=== PATIENT | female | born 1990 | race Hispanic/Latino ===

== ENCOUNTER 2017-06-06 10:29 | Emergency (ER) | payer OTHER ==
[2017-06-06] MEDS ORDERED: Acetaminophen 500 MG TAB ONE (13:15)
--- NOTE | 2017-06-06 14:35 | RAD ---
3 VIEWS RIGHT FOOT: Date: 06/06/17 COMPARISON: None. HISTORY: Dropped a wooden decoration on the right foot, injury with pain. FINDINGS: There is a nondisplaced, obliquely oriented fracture involving the medial base of the first distal ph alanx with extension into the first interphalangeal joint. There is no dislocation. No additional fra cture is seen. IMPRESSION: Obliquely oriented, intraarticular fracture at the medial base of the first distal phalanx. POS: [facility]
== END 2017-06-06 14:27 | disposition home or self-care (01) ==
LOC: ERS 10:29
DX: O9A.212 Injury, poisoning and certain other consequences of external causes complicating pregnancy, second trimester (principal); S92.531A Displaced fracture of distal phalanx of right lesser toe(s), initial encounter for closed fracture; Z3A.27 27 weeks gestation of pregnancy; W20.8XXA Other cause of strike by thrown, projected or falling object, initial encounter

== ENCOUNTER 2017-08-27 01:21 | Inpatient (IN) | payer OTHER ==
[2017-08-27 01:51] VITALS: BMI 35.7
[2017-08-27] MEDS: Lactated Ringer's 1,000 ML IV SCH ×4 (02:12→15:46)
[2017-08-27] MEDS ORDERED: Lidocaine 1% (PF) 30 ML VIAL SC PRN (02:33)
[2017-08-27] MEDS ORDERED: Ondansetron HCl/PF 4 MG/2 ML Vial IVP PRN (02:33)
[2017-08-27] MEDS ORDERED: Acetaminophen 500 MG TAB PO PRN ×2 (02:33→20:19)
[2017-08-27] MEDS ORDERED: Docusate 100 MG CAP PO PRN (02:33)
[2017-08-27] MEDS ORDERED: Promethazine HCl 25 MG/ML VIAL IM PRN (02:33)
[2017-08-27] MEDS ORDERED: Ibuprofen 800 MG TAB PO PRN (02:40)
--- NOTE | 2017-08-27 02:47 | PDOC.LDHP ---
Labor and Delivery H&P Chief complaint: contractions HPI: 26 yo @ 39.1 by lmp and 2nd tri US presents for painful contractions since 11pm last night. Pt reports contractions have progressively become stronger and more frequent. She also reports some mild blood and mucus discharge over same time period. Reports good movement. Denies cp, sob, nvdc, headache, changes in vision, epigastric/ruq abdominal pain. Current gestational age (weeks): 39 (+1) Dating criteria: last menstrual period, second trimester ultrasound Grav: 2 Para: 1 Current complications: none Abnormal US findings: No Current medications: pre- vitamins Previous surgical history: none Social history: none - Physical Exam Vital signs reviewed and normal: yes General: NAD, breathing through contractions Heart: RRR Lungs: nonlabored breathing Abdomen: gravid Extremeties: trace edema FHT: category 1, variability present - Vaginal Exam cm dilated: 5 Effacement: 90% Station: -1 - OB Labs Blood type: B RH: positive Antibody Screen: negative HIV: negative RPR: negative HEPSAg: negative 1 hour GCT: negative GBS: negative Urine drug screen: negative Rubella: non-immune - Assessment L&D Assessment: term patient in labor - Plan Plan: admit to L&D -: 1) TIUP in labor: -admit to l&d, LR @125mls/hr, cervical checks q2hr, hemagram, rpr, hepbsag. Stadol for pain. Pt does not desire epidural at the moment; however, anesthesia consult is pending if pt changes her mind. -pt rafia q5min, fht 140s baseline, cat1 strip, mod variability, w/o late or variable decels -adequate fluid, anterior/fundal placenta, cephalic presentation. Last cervical check 5,90, -1, recheck in 2 hours -npo with ice chips 2) Rubella non-immune: MMR PP <Joon Leavitt - Last Filed: 08/27/17 03:03> <Julee Robertson - Last Filed: 08/27/17 03:34> Allergies/Adverse Reactions: Allergies Allergy/AdvReac Type Severity Reaction Status Date / Time No Known Drug Allergies Allergy Verified 08/27/17 01:42 Attending Addendum - Attending Addendum Date/Time: 08/27/17 0331 I personally evaluated the patient and discussed the management with Dr. Leavitt I agree with the History, Examination, Assessment and Plan documented above with any addition or exceptions noted below- 26 yo @ 39.2 weeks presented c/o ctx. Denies LOF, VB. (+)FM. Afebrile VSS SVE /-1 per nurse; Category 1 FHTs. [place]- ctx q4-5 minutes labs WNL including GBS negative. A/P: IUP @39.2 weeks in labor- admit to L&D. Epidural when desired. Continue expectant management. <Julee Robertson - Last Filed: 08/27/17 03:34>
[2017-08-27] MEDS ORDERED: Butorphanol Tartrate 1 MG/ML VIAL SLOW IVP PRN (03:02)
[2017-08-27 03:05] LABS: Hemoglobin 11.1 g/dL (12.0-16.0); Mean Corpuscular HGB CONC 33.4 g/dL (32.0-36.0); Mean Corpuscular Hemoglobin 25.5 pg (27.0-31.0); Mean Corpuscular Volume 76.3 fl (81.0-99.0); Mean Platelet Volume 10.2 fL (7.4-10.4); Platelet Count 155 thou/uL (130-400); RBC Distribution Width 14.8 % (11.5-14.5); Red Blood Cell (RBC) Count 4.34 mill/uL (4.20-5.40); White Blood Cell (WBC) Count 11.3 thou/uL (4.8-10.8)
--- NOTE | 2017-08-27 04:11 | PDOC.LDPN ---
Labor & Delivery Progress Note - Subjective Subjective: painful contractions - Objective Vital signs reviewed and normal: yes General: breathing through contractions SVE: 6/C/-1 FHT: category 1, early decelerations [place] contractions every: q4-5 minutes -: A/P: IUP @ 39.2 in active labor -Reassuring FHTs; Category 1 -Continue expectant management
[2017-08-27 05:06] LABS: Syphilis Antibody Nonreactive (Nonreactive); Syphilis Antibody Index 0.08 S/CO (<1.00 Non-Reactive)
[2017-08-27 05:38] LABS: Hep B Surf Ag NonReactive S/CO (NonReactive)
[2017-08-27 05:39] LABS: HBSAg Index 0.25 S/CO (0-0.99)
--- NOTE | 2017-08-27 07:25 | PDOC.LDPN ---
Labor & Delivery Progress Note - Subjective Subjective: comfortable, painful contractions - Objective Vital signs reviewed and normal: yes General: NAD, resting, breathing through contractions Uterine fundus: palpable contractions SVE: @ 0545 by nurse Dilation: 6 Effacement: 100% Station: -1 FHT: category 2, variable decelerations (few), variability present [place] contractions every: 2-7 minutes - Assessment (1) Term Code(s): Z34.80 - ENCOUNTER FOR SUPRVSN OF NORMAL , UNSP TRIMESTER Current Visit: Yes Status: Acute Comment: 26 y/o @ 39.1 WGA presented in spontaneous labor Last cervical check at 0545 was 6/100/-1 -Stadol prn pain, epidural if patient changes her mind for pain management -Cervical checks q2h, next at 0745 -LR @ 125 -Continue routine care Plan: continue plan of care <Lore Benítez - Last Filed: 08/27/17 07:23> Attending Addendum - Attending Addendum Date/Time: 08/27/17 0959 Discussed in detail with Dr. Benítez. I agree with the History, Examination, Assessment and Plan documented above with any addition or exceptions noted below. <Karan Alvarado - Last Filed: 08/27/17 09:59>
--- NOTE | 2017-08-27 08:24 | PDOC.LDPN ---
Labor & Delivery Progress Note - Subjective Subjective: painful contractions - Objective Vital signs reviewed and normal: yes General: breathing through contractions Uterine fundus: palpable contractions SVE: @ [address] Benítez Dilation: 7 Effacement: 100% Station: -1 FHT: category 1, variability present [place] contractions every: 3-5 min AROM: clear fluid - Assessment (1) Term Code(s): Z34.80 - ENCOUNTER FOR SUPRVSN OF NORMAL , UNSP TRIMESTER Current Visit: Yes Status: Acute Comment: 26 y/o @ 39.1 WGA presented in spontaneous labor Last cervical check at 0545 was 7100/-1 AROM with clear fluid -Stadol prn pain, epidural if patient changes her mind for pain management -Cervical checks q2h -LR @ 125 -Continue routine care Plan: continue plan of care <Lore Benítez - Last Filed: 08/27/17 08:22> Attending Addendum - Attending Addendum Date/Time: 08/27/17 1002 Discussed in detail with Dr. Benítez. I agree with the History, Examination, Assessment and Plan documented above with any addition or exceptions noted below. <Karan Alvarado - Last Filed: 08/27/17 10:02>
[2017-08-27] MEDS ORDERED: Bupivacaine 0.5% 20 ML, fentaNYL Citrate/PF 400 MCG in Sodium Chloride 0.9% 72 ML EPIDURAL SCH ×2 (10:30→11:15)
[2017-08-27] MEDS ORDERED: DISCONTINUE ALL PREVIOUS NARCOTICS FS SCH (10:30)
[2017-08-27] MEDS ORDERED: Lactated Ringer's 500 ML IV PRN (10:45)
[2017-08-27] MEDS ORDERED: Naloxone HCl 0.4 mg/ml Vial IVP PRN ×2 (10:45)
[2017-08-27] MEDS ORDERED: Fentanyl 4mcg/Marcaine 0.1% Cassette 100 ML EPIDURAL SCH (10:45)
[2017-08-27] MEDS ORDERED: ePHEDrine/0.9% NaCl/PF SYRINGE 50 mg/10 ml SLOW IVP PRN (10:45)
[2017-08-27] MEDS ORDERED: Eucerin (Mineral Oil/Petrolatum,White) 30 gm Jar TOP PRN (10:45)
[2017-08-27] MEDS ORDERED: diphenhydrAMINE 50 MG/ML VIAL IVP PRN (10:45)
[2017-08-27] MEDS ORDERED: Communication Order-Pharmacy FS SCH (10:45)
--- NOTE | 2017-08-27 11:36 | PDOC.LDPN ---
Labor & Delivery Progress Note - Subjective Subjective: painful contractions - Objective Vital signs reviewed and normal: yes General: breathing through contractions Uterine fundus: palpable contractions SVE: @ 1051 by nurse Wills Dilation: 8 Effacement: 90% Station: 0 FHT: category 1, variability present IUPC placed: yes (by Nurse Wills) - Assessment (1) Term Code(s): Z34.80 - ENCOUNTER FOR SUPRVSN OF NORMAL , UNSP TRIMESTER Current Visit: Yes Status: Acute Comment: 26 y/o @ 39.1 WGA presented in spontaneous labor Last cervical check at 0545 was / to -1 IUPC placed about 30 minutes ago by nurse, and ctx have not been adequate. She is having about 50-100 MVU -Epidural in place -Will start pitocin for augmentation -Cervical checks q2h -LR @ 125 -Continue routine care Plan: continue plan of care, pitocin for augmentation <Lore Benítez - Last Filed: 08/27/17 11:34> Attending Addendum - Attending Addendum Date/Time: 08/27/17 1503 Discussed in detail with resident. I agree with the History, Examination, Assessment and Plan documented above with any addition or exceptions noted below. <Karan Alvarado - Last Filed: 08/27/17 15:03>
[2017-08-27] MEDS ORDERED: NS w/ Oxytocin 10 units 500 ML ONE (11:44)
--- NOTE | 2017-08-27 13:13 | PDOC.LDPN ---
Labor & Delivery Progress Note - Subjective Subjective: comfortable - Objective Vital signs reviewed and normal: yes General: NAD Uterine fundus: non tender Dilation: 9 Effacement: 100% Station: -1 FHT: category 1, early decelerations, variability present [place] contractions every: 2-3 min. inadequate IUPC placed: yes FSE placed: yes - Assessment (1) Term Code(s): Z34.80 - ENCOUNTER FOR SUPRVSN OF NORMAL , UNSP TRIMESTER Current Visit: Yes Status: Acute Comment: 26 y/o @ 39.1 WGA presented in spontaneous labor /-1, averaging 150 MVU/10 min. still inadequate. titrate pit. -Epidural in place -Cervical checks q2h -LR @ 125 <Maxime Rodriguez - Last Filed: 08/27/17 13:12> Attending Addendum - Attending Addendum Date/Time: 08/27/17 4077 I discussed the management with Dr. Benítez and Jennifer. I agree with the History, Examination, Assessment and Plan documented above with any addition or exceptions noted below. <Karan Alvarado - Last Filed: 08/27/17 15:04>
--- NOTE | 2017-08-27 15:07 | PDOC.LDPN ---
Labor & Delivery Progress Note - Objective Vital signs reviewed and normal: yes General: NAD, resting Uterine fundus: non tender Dilation: AL/c/0 per RN FHT: category 1 (+accelerations), variability present [place] contractions every: q2-3m, pit @ 20, MVU ~160 AROM: clear fluid Plan: continue plan of care (Continue pitocin, may need to continue increasing, on bedside sono baby LOT, trending to LOP. Recheck in 1-2 hours.)
[2017-08-27] MEDS ORDERED: SODIUM CHLORIDE 0.9% IVPB SCH ×2 (18:10→18:45)
[2017-08-27] MEDS ORDERED: GENTAMICIN SULFATE IVPB SCH ×2 (18:10→18:45)
[2017-08-27] MEDS: Ampicillin 2 GM in Sodium Chloride 0.9% 100 ML IVPB SCH (18:42)
[2017-08-27] MEDS: NS / Oxytocin 40 units/1000ml 1,000 ML IV PRN ×2 (19:33→20:45)
[2017-08-27] MEDS ORDERED: Carboprost 250 MCG/ML AMP ONE (19:42)
[2017-08-27] MEDS ORDERED: Misoprostol 200 MCG TAB ONE (19:42)
[2017-08-27] MEDS ORDERED: Methylergonovine 0.2 MG/ML VIAL ONE (19:42)
--- NOTE | 2017-08-27 21:25 | PDOC.OPDEL ---
OB Operative/Delivery Note Delivery Dr/Surgeon: Yvon Leavitt DO/Maxime Rodriguez MD Assist: Attending- Julee Robertson MD Pre-Delivery Diagnosis: active labor Procedure/Post Delivery Dx: spontaneous vaginal delivery Weeks gestation: 40 Anesthesia: epidural - Additional Findings/Plan Placenta delivered: spontaneous Repaired Obstetrical Laceration: none Estimated blood loss: 300 mL Compilations/Other Findings: I was present and supervised the of a viable male over an intact perineum. Apgars 9/9. Nuchal cord x1. Infant delivered through cord without difficulty. Placenta delivered spontaneously and intact. 3 V cord. No epis; no lacerations. EBL 300 mL. Residents: [place]. Mother developed fevber about 1 hour prior to delivery with associated and maternal tachycardia. Started on Ampicillin and Gentamicin for chorioamnionitis; will continue until she is 24-48 hours afebrile. CBC, lactate and blood cultures also drawn post delivery. Placenta sent for pathology. Post delivery plan: routine recovery
[2017-08-27 22:23] LABS: Mean Corpuscular HGB CONC 32.6 g/dL (32.0-36.0); Mean Corpuscular Hemoglobin 24.9 pg (27.0-31.0); Mean Corpuscular Volume 76.5 fl (81.0-99.0); Mean Platelet Volume 7.1 fL (7.4-10.4); Platelet Count 184 thou/uL (130-400); RBC Distribution Width 14.8 % (11.5-14.5); Red Blood Cell (RBC) Count 4.02 mill/uL (4.20-5.40); White Blood Cell (WBC) Count 17.9 thou/uL (4.8-10.8)
[2017-08-27 22:55] LABS: Band 12 % (5-11); Lymphocytes 4 % (21-51); MDiff Complete? YES; Monocytes 4 % (0-10); Neutrophil 80 % (42-75); PLT Morphology Comment Appears Adequate; RBC Morphology Normal
[2017-08-27] MEDS ORDERED: diphenhydrAMINE 25 MG CAP PO PRN (23:14)
[2017-08-27] MEDS ORDERED: Misoprostol 200 MCG TAB VAG PRN (23:14)
[2017-08-27] MEDS ORDERED: Benzocaine/Menthol 20-0.5% 60 ML CAN TOP PRN (23:14)
[2017-08-27] MEDS ORDERED: Preparation H Ointment 28 GM TUBE PR PRN (23:14)
[2017-08-27] MEDS ORDERED: NS / Oxytocin 40 units/1000ml 1,000 ML IV SCH (23:14)
[2017-08-27] MEDS ORDERED: Ibuprofen 800 MG TAB PO SCH (23:14)
[2017-08-27] MEDS ORDERED: Milk Of Magnesia 30 ML UDCUP PO PRN (23:14)
[2017-08-27] MEDS ORDERED: Bisacodyl 10 MG SUPP PR PRN (23:14)
[2017-08-27] MEDS ORDERED: Methylergonovine 0.2 MG/ML VIAL IM PRN (23:14)
[2017-08-27] MEDS ORDERED: Docusate Calcium (SURFAK) 240 MG CAP PO SCH ×2 (23:14→23:45)
[2017-08-27] MEDS ORDERED: Lanolin Ointment 7 GM TUBE TOP PRN (23:14)
[2017-08-28] MEDS: Ibuprofen 800 MG TAB PO SCH ×4 (00:03→23:57)
[2017-08-28] MEDS: Ampicillin 2 GM in Sodium Chloride 0.9% 100 ML IVPB SCH ×3 (00:56→13:05)
[2017-08-28] MEDS: Gentamicin Sulfate 100 MG in Premix Bag 1 BAG IVPB SCH ×2 (03:02→11:24)
[2017-08-28] MEDS: Lactated Ringer's 1,000 ML IV SCH ×2 (04:45→19:52)
[2017-08-28 06:26] LABS: #Eosinphils 0.2 thou/uL (0.0-0.7); #Lymphocytes 2.3 thou/uL (1.20-3.40); #Monocytes 1.2 thou/uL (0.11-0.59); #Neutrophils 12.9 thou/uL (1.40-6.50); %Basophils 0.3 % (0.0-1.0); %Eosinophils 1.4 % (0.0-10.0); %Lymphocytes 13.9 % (21.0-51.0); %Monocytes 7.1 % (0.0-10.0); %Neutrophils 77.4 % (42.0-75.0); Hemoglobin 9.3 g/dL (12.0-16.0); Mean Corpuscular HGB CONC 32.2 g/dL (32.0-36.0); Mean Corpuscular Volume 77.6 fl (81.0-99.0); Mean Platelet Volume 9.9 fL (7.4-10.4); Platelet Count 123 thou/uL (130-400); RBC Distribution Width 14.8 % (11.5-14.5); Red Blood Cell (RBC) Count 3.71 mill/uL (4.20-5.40); White Blood Cell (WBC) Count 16.7 thou/uL (4.8-10.8)
--- NOTE | 2017-08-28 06:55 | PDOC.PP ---
Post Progress Note Post Day #: 1 Subjective: pain controlled. feeling better but tired. Attempting to breast feed. states that is going well. PO intake tolerated: yes Flatus: yes Ambulation: yes Vital Signs (12 hours) Temp Pulse Resp BP 08/28/17 04:00 98.1 F 89 18 95/54 L 08/28/17 00:30 98.5 F 92 18 96/52 L 08/27/17 23:30 98.4 F 100 18 97/51 L 08/27/17 22:30 99.0 F 100 18 94/53 L Weight Weight 91.626 kg - Physical Examination General: NAD Cardiovascular: no m/r/g, RRR Respiratory: clear to auscultation bilaterally, non-labored breathing Abdominal: + bowel sounds, lochia, no distention, appropriately TTP Extremities: negative homans (B) Neurological: no gross focal deficits Psychiatric: A&Ox3, normal affect Result Diagrams: 08/28/17 06:10 Additional Labs: Post Labs Blood Type B POSITIVE 08/27/17 02:14 Hep Bs Antigen NonReactive S/CO (NonReactive) 08/27/17 02:14 (1) Term Code(s): Z34.80 - ENCOUNTER FOR SUPRVSN OF NORMAL , UNSP TRIMESTER Status: Acute Comment: 26 y/o @ 39.1 WGA presented in spontaneous labor now delivered - routine care - give MMR vaccine since rubella non-immune - expectant managment. - baby will require 48 hr observation, will discuss keeping vs. B&B tomorrow. (2) Chorioamnionitis, delivered, current hospitalization Code(s): O41.1290 - CHORIOAMNIONITIS, UNSP TRIMESTER, NOT APPLICABLE OR UNSP Status: Acute Comment: VSS. white count trending down. - continue abx until afebrile 24 hours - cultures pending. <Maxime Rodriguez - Last Filed: 08/28/17 08:52> Vital Signs (12 hours) Temp Pulse Resp BP 08/28/17 09:00 98.6 F 86 16 101/56 L 08/28/17 04:00 98.1 F 89 18 95/54 L 08/28/17 00:30 98.5 F 92 18 96/52 L 08/27/17 23:30 98.4 F 100 18 97/51 L 08/27/17 22:30 99.0 F 100 18 94/53 L Weight Weight 91.626 kg Result Diagrams: 08/28/17 06:10 Additional Labs: Post Labs Blood Type B POSITIVE 08/27/17 02:14 Hep Bs Antigen NonReactive S/CO (NonReactive) 08/27/17 02:14 <Karan Alvarado - Last Filed: 08/28/17 09:48> Attending Addendum - Attending Addendum Date/Time: 08/28/1747 I personally evaluated the patient and discussed the management with Dr. Rodriguez and team. I agree with and repeated the History, Examination, Assessment and Plan documented above with any addition or exceptions noted below. Nontoxic this AM, is doing well, BF baby. Mild abdominal pain but overall fever , chills, n or v. Continue antibiotics, will change amp to q6h as has been continued pp and stop once AF x 24h. <Karan Alvarado - Last Filed: 08/28/17 09:48>
[2017-08-28] MEDS: NS w/ Oxytocin 10 units 500 ML IV SCH ×2 (07:37→13:06)
[2017-08-28] MEDS: Prenatal Vitamin 1 TAB PO SCH (08:45)
[2017-08-28] MEDS: Ferrous Sulfate 325 MG TAB PO SCH ×2 (08:46→17:18)
[2017-08-28] MEDS: Docusate Calcium (SURFAK) 240 MG CAP PO SCH ×2 (08:46→23:57)
[2017-08-28] MEDS ORDERED: Adacel (T-DAP) 0.5 ML VIAL IM ONE (09:00)
[2017-08-28] MEDS ORDERED: Measles/Mumps/Rubella 10 MCG/0.5 ML VIAL SC ONE (09:00)
--- NOTE | 2017-08-28 11:35 | DN-2 ---
VAGINAL DELIVERY NOTE DELIVERY DATE: 08/27/2017 DELIVERY TIME: 07:28 p.m. RESIDENT: Jono Leavitt DO ASSISTING RESIDENT: Maxime Rodriguez MD ATTENDING PHYSICIAN: Julee Robertson MD PREOPERATIVE DIAGNOSES: 1. Term intrauterine in labor. 2. History of chorioamnionitis. 3. History of hemorrhage. 4. History of retained placenta. SECONDARY DIAGNOSES: 1. Term intrauterine , delivered. 2. Presumed intraamniotic infection, status post antibiotics. 3. History of chorioamnionitis. 4. History of hemorrhage. 5. History of retained placenta. ANESTHESIA: Epidural. ESTIMATED BLOOD LOSS: 300 mL INDICATIONS: Ms. Gottlieb is a 26-year-old G2, P1-0-0-1 at 39.1 weeks gestation, dated by LMP confirmed with second trimester ultrasound. She presented to the hospital in spontaneous labor. PROCEDURE IN DETAIL: Ms. Gottlieb is a 26-year-old at 39.1 weeks who presented in spontaneous labor. She had a moderately long course of labor and with artificial rupture of membranes occurred at approximately 10:00 a.m. on the day of delivery. She developed fever approximately 2 hours prior to delivery. At this time, her antibiotics of ampicillin and gentamicin were started at this time. Following the previously mentioned course, a vigorous male was delivered at 07:28 p.m. over intact perineum. The head was held down, nares and mouth were bulb suctioned. Cord was cut and clamped and the infant was handed to awaiting team. Cord blood was then collected. Fundal massage was performed and the placenta was delivered at 07: 41 p.m. Fundus was then massaged and noted to be firm. The vagina and cervix were inspected and noted to be free of laceration. The placenta was then thoroughly inspected. On gross visualization, the placenta appeared to be intact. There was some [id number] calcification was noted. Apgars were 9 and 9 at 1 and 5 minutes respectively with points lost for color. Mother was transferred to the unit after routine care and recovery. Dr. Robertson was present for the entire delivery. [facility]
[2017-08-29] MEDS: Lactated Ringer's 1,000 ML IV SCH ×3 (05:18→18:02)
--- NOTE | 2017-08-29 06:30 | PDOC.PP ---
Post Progress Note Post Day #: 2 Subjective: no concerns. discussed d/c to B&B vs staying inpatient. would like to stay. PO intake tolerated: yes Flatus: yes Ambulation: yes Vital Signs (12 hours) Temp Pulse Resp BP 08/28/17 19:40 98.0 F 81 18 93/54 L Weight Weight 91.626 kg - Physical Examination General: NAD Cardiovascular: no m/r/g, RRR Respiratory: clear to auscultation bilaterally, non-labored breathing Abdominal: + bowel sounds, lochia, no distention, appropriately TTP Extremities: negative homans (B) Neurological: no gross focal deficits Psychiatric: A&Ox3, normal affect Result Diagrams: 08/28/17 06:10 Additional Labs: Post Labs Blood Type B POSITIVE 08/27/17 02:14 Hep Bs Antigen NonReactive S/CO (NonReactive) 08/27/17 02:14 (1) Term Code(s): Z34.80 - ENCOUNTER FOR SUPRVSN OF NORMAL , UNSP TRIMESTER Status: Acute Comment: 26 y/o @ 39.1 WGA presented in spontaneous labor now delivered - routine care - give MMR vaccine since rubella non-immune at time of D/C - expectant managment. - baby will require 48 hr observation. Will keep since mom required intrapartum abx. (2) Chorioamnionitis, delivered, current hospitalization Code(s): O41.1290 - CHORIOAMNIONITIS, UNSP TRIMESTER, NOT APPLICABLE OR UNSP Status: Acute Comment: VSS. Cultures negative to date. placenta path pending - has been off abx for 12 hours. Will monitor overnight and plan to d/c tomorrow. <Maxime Rodriguez - Last Filed: 08/29/17 06:42> Vital Signs (12 hours) Temp Pulse Resp BP 08/29/17 10:35 98.3 F 75 20 08/29/17 09:00 98.3 F 75 20 111/63 Weight Weight 91.626 kg Result Diagrams: 08/28/17 06:10 Additional Labs: Post Labs Blood Type B POSITIVE 08/27/17 02:14 Hep Bs Antigen NonReactive S/CO (NonReactive) 08/27/17 02:14 <Rosaline Bravo - Last Filed: 08/29/17 16:52> Attending Addendum - Attending Addendum Date/Time: 08/29/17 6285 I personally evaluated the patient and discussed the management with Dr. Rodriguez I agree with the History, Examination, Assessment and Plan documented above with any addition or exceptions noted below. 26 yo female s/p complicated by chorioamnionitis. PPD#2. Patient doing well. No s/sx of infection. Afebrile. VSS. Pain controlled. Reports improvement in labial edema but still present. Lochia mild. Breast feeding. Fundus nontender and below umbilicus. Firm. Will continue inpatient monitoring throughout the day. Possible dc in AM. Continue ice pack prn to labia. Encourage frequent ambulation. Sreekanth <Rosaline Bravo - Last Filed: 08/29/17 16:52>
[2017-08-29] MEDS: Prenatal Vitamin 1 TAB PO SCH (07:39)
[2017-08-29] MEDS: Ferrous Sulfate 325 MG TAB PO SCH ×2 (07:39→18:33)
[2017-08-29] MEDS: Docusate Calcium (SURFAK) 240 MG CAP PO SCH ×2 (07:39→22:26)
[2017-08-29] MEDS: Ibuprofen 800 MG TAB PO SCH ×3 (07:40→22:26)
[2017-08-29] MEDS: NS w/ Oxytocin 10 units 500 ML IV SCH (14:45)
[2017-08-30] MEDS: Lactated Ringer's 1,000 ML IV SCH ×3 (02:48→17:35)
[2017-08-30 04:45] VITALS: TEMP 98
[2017-08-30] MEDS: Ibuprofen 800 MG TAB PO SCH ×2 (05:08→14:49)
--- NOTE | 2017-08-30 06:19 | PDOC.PP ---
Post Progress Note Post Day #: 3 Subjective: Doing well. no concerns. wants to go home. PO intake tolerated: yes Flatus: yes Ambulation: yes Vital Signs (12 hours) Temp Pulse Resp BP 08/30/17 04:44 98.0 F 08/29/17 23:37 98.2 F 08/29/17 20:00 98.3 F 77 16 110/68 Weight Weight 91.626 kg - Physical Examination General: NAD Cardiovascular: no m/r/g, RRR Respiratory: clear to auscultation bilaterally, non-labored breathing Abdominal: + bowel sounds, lochia, no distention, appropriately TTP Extremities: negative homans (B) Psychiatric: A&Ox3, normal affect Result Diagrams: 08/28/17 06:10 Additional Labs: Post Labs Blood Type B POSITIVE 08/27/17 02:14 Hep Bs Antigen NonReactive S/CO (NonReactive) 08/27/17 02:14 (1) Term Code(s): Z34.80 - ENCOUNTER FOR SUPRVSN OF NORMAL , UNSP TRIMESTER Status: Acute Comment: 26 y/o @ 39.1 WGA presented in spontaneous labor now delivered - routine care - give MMR vaccine since rubella non-immune at time of D/C - expectant managment. - d/c today. (2) Chorioamnionitis, delivered, current hospitalization Code(s): O41.1290 - CHORIOAMNIONITIS, UNSP TRIMESTER, NOT APPLICABLE OR UNSP Status: Acute Comment: VSS. Cultures negative to date. placenta path pending - cultures negative at 48 hrs. d/c today. <Maxime Rodriguez - Last Filed: 08/30/17 08:56> Vital Signs (12 hours) Temp Pulse Resp BP Pulse Ox 08/30/17 08:00 98.0 F 72 18 104/60 98 08/30/17 07:54 98.0 F 72 18 08/30/17 04:44 98.0 F 08/29/17 23:37 98.2 F Weight Weight 91.626 kg Result Diagrams: 08/28/17 06:10 Additional Labs: Post Labs Blood Type B POSITIVE 08/27/17 02:14 Hep Bs Antigen NonReactive S/CO (NonReactive) 08/27/17 02:14 <Rosaline Bravo - Last Filed: 08/30/17 10:24> Attending Addendum - Attending Addendum Date/Time: 08/30/17 1022 I personally evaluated the patient and discussed the management with Dr. Rodriguez I agree with the History, Examination, Assessment and Plan documented above with any addition or exceptions noted below. 26 yo female s/p complicated by chorioamnionitis. PPD#3. Patient doing well. No s/sx of infection. Afebrile. VSS. Pain controlled. Lochia mild. Breast feeding. Fundus nontender and below umbilicus. Firm. Labial edema improving. Dispo: Ok to d/c to home vs bed and breakfast based on availability. Followup with PCP in 2 wks. Sreekanth <Rosaline Bravo - Last Filed: 08/30/17 10:24>
[2017-08-30 08:51] VITALS: BP 104/60
[2017-08-30] MEDS: Ferrous Sulfate 325 MG TAB PO SCH ×2 (09:05→17:28)
[2017-08-30] MEDS: Prenatal Vitamin 1 TAB PO SCH (09:05)
[2017-08-30] MEDS: Docusate Calcium (SURFAK) 240 MG CAP PO SCH (09:05)
[2017-08-30] MEDS: NS w/ Oxytocin 10 units 500 ML IV SCH (13:55)
== END 2017-08-30 18:37 | disposition home or self-care (01) | DRG 775 ==
LOC: L&D/OP 01:21 → L&D 02:21 → 3SW 22:44
PROVIDERS: ADMIT Family Medicine; ATTEND Family Medicine
PROC: 10E0XZZ Delivery of Products of Conception, External Approach (ICD-10-PCS; principal; 2017-08-27)
DX: O41.1230 Chorioamnionitis, third trimester, not applicable or unspecified (principal); Z37.0 Single live birth; Z3A.39 39 weeks gestation of pregnancy; O69.81X0 Labor and delivery complicated by cord around neck, without compression, not applicable or unspecified
CPT/HCPCS: 36415; 51702; 76815; 83605; 85025; 85027; 86780; 86850; 86900; 86901; 87040; 87340; 88307; 99285; J0290; J0595; J1580; J2001; J2210; J3010; J3490; J7050

== ENCOUNTER 2017-11-08 15:51 | Emergency (ER) | payer OTHER ==
[2017-11-08 16:41] LABS: #Eosinphils 1.2 thou/uL (0.0-0.7); #Lymphocytes 3.7 thou/uL (1.20-3.40); #Monocytes 0.8 thou/uL (0.11-0.59); %Basophils 0.4 % (0.0-1.0); %Eosinophils 10.1 % (0.0-10.0); %Lymphocytes 31.9 % (21.0-51.0); %Monocytes 6.7 % (0.0-10.0); Hemoglobin 13.9 g/dL (12.0-16.0); Mean Corpuscular HGB CONC 34.2 g/dL (32.0-36.0); Mean Corpuscular Hemoglobin 26.9 pg (27.0-31.0); Mean Corpuscular Volume 78.6 fL (78.0-98.0); Mean Platelet Volume 10.1 fL (7.4-10.4); Platelet Count 192 thou/uL (130-400); Red Blood Cell (RBC) Count 5.16 mill/uL (4.20-5.40); White Blood Cell (WBC) Count 11.7 thou/uL (4.8-10.8)
[2017-11-08 16:53] LABS: Bilirubin Negative (Negative); Blood, Urine Negative (Negative); Clarity CLEAR (Clear); Glucose, Urine (Dipstick) Negative (Negative); Leukocyte Small (Negative); Nitrite Negative (Negative); Protein, Urine (Dipstick) Trace mg/dL (Neg-Trace); Specific Gravity, Urine 1.029 (1.002-1.036); pH, Urine 7.5 (5.0-9.0)
[2017-11-08 16:54] LABS: Pregnancy Test - Urine (BHCG) Negative (Negative); Pregu Control Background? CLEAR/WHITE (CLR/WHITE); Pregu Control Bar Appear? YES (CONTROL BAR); Specific Gravity 1.029 (1.002-1.036)
[2017-11-08 16:56] LABS: Bacteria/HPF None Seen HPF (None Seen); Hyaline Casts/LPF 0-3 HYALINE CAST LPF (0-3 Hyaline); Pathc Cast-AUWi Flag 0.43 (0-2.49); RBC/HPF 0-3 HPF (0-3); Squamous Epithelial 0-3 HPF (0-3); WBC/HPF 0-3 HPF (0-3)
[2017-11-08 17:04] LABS: ALT (SGPT) 61 U/L (8-55); AST (SGOT) 39 U/L (5-34); Albumin 4.4 g/dL (3.5-5.0); Alkaline Phosphatase 85 U/L (40-150); Anion Gap 14 mmol/L (10-20); BUN (Urea Nitrogen) 10 mg/dL (7.0-18.7); Bilirubin, Total 0.5 mg/dL (0.2-1.2); Calc. Creatinine Clearance 0 mL/min (70-130); Calcium 9.3 mg/dL (7.8-10.44); Carbon Dioxide 22 mmol/L (22-29); Chloride 105 mmol/L (98-107); Estimated GFR-MDRD 90; Globulin 3.8 g/dL (2.4-3.5); Glucose 85 mg/dL (70-105); Lipase 46 U/L (8-78); Potassium 4.1 mmol/L (3.5-5.1); Protein, Total 8.2 g/dL (6.0-8.3); Sodium 137 mmol/L (136-145)
--- NOTE | 2017-11-08 18:39 | RAD ---
PORTABLE CHEST: History: Chest pain. FINDINGS: Heart size and mediastinum are within normal limits. The lungs are clear of infiltrates. No bony find ings. IMPRESSION: No active intrathoracic disease. POS: [facility]
== END 2017-11-08 19:07 | disposition home or self-care (01) ==
LOC: ERS 15:51
DX: M94.0 Chondrocostal junction syndrome [Tietze] (principal)
CPT/HCPCS: 36415; 71045; 80053; 81003; 81015; 81025; 83690; 85025; 93005

== ENCOUNTER 2019-02-25 03:39 | Inpatient (IN) | payer BC ==
[2019-02-25 04:13] VITALS: BMI 35.0
[2019-02-25] MEDS ORDERED: Methylergonovine 0.2 MG/ML VIAL IM PRN ×2 (05:45→18:37)
[2019-02-25] MEDS ORDERED: Carboprost 250 MCG/ML AMP IM PRN (05:45)
[2019-02-25] MEDS ORDERED: NS / Oxytocin 40 units/1000ml 1,000 ML IV SCH ×2 (05:45→18:37)
[2019-02-25] MEDS ORDERED: NS w/ Oxytocin 10 units 500 ML IV SCH (05:45)
[2019-02-25] MEDS ORDERED: HYDROcodone/Acetaminophen 5/325 mg Tablet PO PRN ×4 (05:45→18:37)
[2019-02-25] MEDS ORDERED: Misoprostol 200 MCG TAB RC PRN (05:45)
[2019-02-25] MEDS ORDERED: Ibuprofen 800 MG TAB PO PRN (05:45)
[2019-02-25] MEDS ORDERED: Lidocaine 1% (PF) 30 ML VIAL SC PRN (05:45)
[2019-02-25] MEDS ORDERED: Ondansetron PF 4 MG/2 ML Vial IVP PRN ×3 (05:50→18:37)
[2019-02-25] MEDS ORDERED: hydrALAZINE 20 MG/ML VIAL SLOW IVP PRN ×2 (05:50→18:37)
[2019-02-25] MEDS ORDERED: Promethazine HCl 25 MG/ML VIAL IM PRN ×3 (05:50→18:37)
[2019-02-25] MEDS ORDERED: Butorphanol Tartrate 1 MG/ML VIAL SLOW IVP PRN (05:50)
[2019-02-25] MEDS ORDERED: Acetaminophen 500 MG TAB PO PRN (05:50)
[2019-02-25 06:57] LABS: Hemoglobin 11.1 g/dL (12.0-16.0); Mean Corpuscular HGB CONC 33.4 g/dL (32.0-36.0); Mean Corpuscular Hemoglobin 25.3 pg (27.0-31.0); Mean Corpuscular Volume 75.6 fL (78.0-98.0); Mean Platelet Volume 11.2 fL (7.4-10.4); Platelet Count 152 thou/uL (130-400); RBC Distribution Width 13.5 % (11.5-14.5); Red Blood Cell (RBC) Count 4.41 mill/uL (4.20-5.40); White Blood Cell (WBC) Count 10.4 thou/uL (4.8-10.8)
[2019-02-25] MEDS: Lactated Ringer's 1,000 ML IV SCH ×2 (07:08→13:14)
[2019-02-25 07:36] LABS: HBSAg Index 0.13 S/CO (0-0.99); Hep B Surf Ag Non-Reactive S/CO (NonReactive)
[2019-02-25] MEDS ORDERED: Fentanyl 4 mcg/Bup 0.1% Cadd 100 ML ONE ×2 (08:34→16:26)
[2019-02-25] MEDS: NS w/ Oxytocin 10 units 500 ML IV SCH ×2 (09:54→13:14)
[2019-02-25 10:38] LABS: Syphilis Antibody Nonreactive (Nonreactive); Syphilis Antibody Index 0.08 S/CO (<1.00 Non-Reactive)
[2019-02-25] MEDS ORDERED: Acetaminophen 325 MG TAB PO PRN (11:42)
[2019-02-25] MEDS ORDERED: Lactated Ringer's 500 ML IV PRN (11:42)
[2019-02-25] MEDS ORDERED: diphenhydrAMINE 50 MG/ML VIAL IVP PRN (11:42)
[2019-02-25] MEDS ORDERED: ePHEDrine/0.9% NaCl/PF SYRINGE 50 mg/10 ml SLOW IVP PRN (11:42)
[2019-02-25] MEDS ORDERED: Naloxone HCl 0.4 mg/ml Vial IVP PRN ×2 (11:42)
[2019-02-25] MEDS ORDERED: Communication Order-Pharmacy FS SCH (11:45)
[2019-02-25] MEDS ORDERED: Fentanyl 4 mcg/Bupivacaine 0.1% Cassette 100 ML EPIDURAL SCH (11:45)
--- NOTE | 2019-02-25 16:10 | PDOC.LDHP ---
Labor and Delivery H&P Chief complaint: contractions HPI: 28 y/o at 40 weeks and 1/7 presents in Labor. EDC 02/24/19. Current gestational age (weeks): 40 Due date: 02/24/19 Grav: 3 Para: 2 Abnormal US findings: No Current medications: pre- vitamins Previous surgical history: none Allergies/Adverse Reactions: Allergies Allergy/AdvReac Type Severity Reaction Status Date / Time No Known Drug Allergies Allergy Verified 02/25/19 04:13 Social history: none - Physical Exam Vital signs reviewed and normal: yes General: NAD, resting Heart: RRR Lungs: nonlabored breathing Abdomen: gravid Extremeties: no edema FHT: category 1 - Assessment L&D Assessment: term patient in labor - Plan Plan: admit to L&D, labor augmentation if indicated
[2019-02-25] MEDS ORDERED: Methylergonovine 0.2 MG/ML VIAL ONE (18:30)
[2019-02-25] MEDS ORDERED: Milk Of Magnesia 30 ML UDCUP PO PRN (18:37)
[2019-02-25] MEDS ORDERED: Benzocaine-Menthol 82.5 ML CAN TOP PRN (18:37)
[2019-02-25] MEDS ORDERED: Preparation H Ointment 28 GM TUBE PR PRN (18:37)
[2019-02-25] MEDS ORDERED: Bisacodyl 10 MG SUPP PR PRN (18:37)
[2019-02-25] MEDS ORDERED: Zolpidem Tartrate 5 MG TAB PO PRN (18:37)
[2019-02-25] MEDS ORDERED: Misoprostol 200 MCG TAB VAG PRN (18:37)
[2019-02-25] MEDS ORDERED: diphenhydrAMINE 25 MG CAP PO PRN (18:37)
[2019-02-25] MEDS ORDERED: Lanolin Ointment 7 GM TUBE TOP PRN (18:37)
[2019-02-25] MEDS ORDERED: Acetaminophen/Codeine 30-300mg Tablet PO PRN ×2 (18:37)
[2019-02-25] MEDS ORDERED: FLU VACC QS2019-20(6MOS UP)/PF 60 MCG/0.5 ML SYRINGE IM ONE (21:00)
[2019-02-25] MEDS ORDERED: Methylergonovine 0.2 MG/ML VIAL IM SCH (21:45)
[2019-02-25] MEDS: Ibuprofen 800 MG TAB PO SCH (22:14)
[2019-02-25] MEDS: Docusate Calcium (SURFAK) 240 MG CAP PO SCH (22:15)
[2019-02-26] MEDS ORDERED: Diphenoxylate HCl/Atropine Tablet PO PRN ×2 (00:14→06:47)
[2019-02-26] MEDS: Carboprost 250 MCG/ML AMP IM SCH ×2 (00:23→00:45)
--- NOTE | 2019-02-26 04:18 | PDOC.PP ---
Post Progress Note Post Day #: 1 Subjective: Patient states she feel tired this AM. Has been getting up 2/2 diarrhea stools frequently overnight since receiving the hemabate. Denies any orthostasis or dizziness, N/V or heavy vaginal bleeding since ~0200. States breast feeding is going well. PO intake tolerated: yes Flatus: yes Ambulation: yes Vital Signs (12 hours) Temp Pulse Resp BP Pulse Ox 02/26/19 01:15 69 18 116/73 97 02/26/19 00:50 98.2 F 74 18 116/62 98 02/25/19 23:20 98.4 F 72 18 111/60 97 02/25/19 22:24 84 18 103/60 02/25/19 21:25 98.1 F 84 18 95/52 L 98 Weight Weight 89.811 kg - Physical Examination General: NAD Cardiovascular: no m/r/g, RRR Respiratory: clear to auscultation bilaterally, non-labored breathing Abdominal: + bowel sounds, no distention, appropriately TTP Extremities: negative homans (B) Neurological: no gross focal deficits Psychiatric: A&Ox3, normal affect Result Diagrams: 02/26/19 04:51 Additional Labs: Post Labs Blood Type B POSITIVE 02/25/19 06:26 Hep Bs Antigen Non-Reactive S/CO (NonReactive) 02/25/19 06:26 (1) Status post vaginal delivery Status: Acute (2) Acute blood loss anemia Code(s): D62 - ACUTE POSTHEMORRHAGIC ANEMIA Status: Acute - Assessment/Plan 28YO who is PP day #1 s/p @ 40.1 WGA. PP day #1 s/p : - Pain well-controlled on PO meds. Tolerating PO. Breast feeding well. Passing gas but no BM yet. Moran still in place. - Reports bleeding is much less now. Minimal blood noted on pad on exam. - PRN lomotil for persistent diarrhea. - Continue routine PP care. Acute blood loss anemia: - H/H 11.1/33.3 on admission and down to 10.4/31.5 this AM. - Required methergine & hemabate x2 IM in addition to pitocin overnight for persistent heavy bleeding with passage of 2 large clots but vitals remained stable. - QBL 793mL since delivery. No clots noted since ~0232 this AM per patient. - Will continue to monitor vitals closely. Anemia in : - Aware, H/H 11.1/33.3 on admission & down to only 10.4/31.5 this AM. - Will continue PO Fe PP. Dispo: Likely d/c home later today.
[2019-02-26 05:07] LABS: Hemoglobin 10.4 g/dL (12.0-16.0); Mean Corpuscular HGB CONC 33.1 g/dL (32.0-36.0); Mean Corpuscular Hemoglobin 24.7 pg (27.0-31.0); Mean Corpuscular Volume 74.8 fL (78.0-98.0); Mean Platelet Volume 11.1 fL (7.4-10.4); Platelet Count 140 thou/uL (130-400); RBC Distribution Width 13.5 % (11.5-14.5); Red Blood Cell (RBC) Count 4.22 mill/uL (4.20-5.40); White Blood Cell (WBC) Count 12.3 thou/uL (4.8-10.8)
[2019-02-26] MEDS: Ibuprofen 800 MG TAB PO SCH ×3 (06:04→22:39)
[2019-02-26] MEDS ORDERED: Diphenoxylate HCl/Atropine Tablet PO SCH (07:00)
[2019-02-26] MEDS: Ferrous Sulfate 325 MG TAB PO SCH ×2 (08:43→17:32)
[2019-02-26] MEDS: Docusate Calcium (SURFAK) 240 MG CAP PO SCH ×2 (08:45→22:39)
[2019-02-26] MEDS ORDERED: Adacel (T-DAP) 0.5 ML SYRINGE IM ONE (09:00)
[2019-02-26] MEDS ORDERED: Varicella virus, LIVE 0.5 ML VIAL SC ONE (09:00)
[2019-02-26] MEDS ORDERED: Bupivacaine 0.25% HCL 30 ML VIAL ONE (11:11)
[2019-02-27] MEDS: Ibuprofen 800 MG TAB PO SCH (07:13)
[2019-02-27 08:34] VITALS: BP 100/59; TEMP 98.4
--- NOTE | 2019-02-27 08:58 | PDOC.PP ---
Post Progress Note Post Day #: 2 Subjective: NAEO. Doing well. Improved VB per nursing and patient. Ready to go home. PO intake tolerated: yes Flatus: yes Ambulation: yes Vital Signs (12 hours) Temp Pulse Resp BP Pulse Ox 02/27/19 07:02 98.4 F 73 20 100/59 L 96 Weight Weight 89.811 kg - Physical Examination General: NAD Cardiovascular: no m/r/g, RRR Respiratory: clear to auscultation bilaterally, non-labored breathing Abdominal: + bowel sounds, no distention, appropriately TTP Psychiatric: A&Ox3, normal affect Result Diagrams: 02/26/19 04:51 Additional Labs: Post Labs Blood Type B POSITIVE 02/25/19 06:26 Hep Bs Antigen Non-Reactive S/CO (NonReactive) 02/25/19 06:26 (1) Status post vaginal delivery Status: Acute - Assessment/Plan 28YO who is PP day #2 s/p @ 40.1 WGA. PP day #2 s/p : - Pain well-controlled on PO meds. Tolerating PO. Breast feeding well. Passing gas - Improved vaginal bleeding, minimal on pad Acute blood loss anemia: - H/H 11.1/33.3 on admission and down to 10.4/31.5 yesterday AM, patient w/ VSS , asx - QBL 65cc/24 hours, no clots noted - Will send home with PO iron Anemia in : - Aware, H/H 11.1/33.3 on admission & down to only 10.4/31.5, patient with dec. vaginal bleeding overnight - Will send home on PO iron with recheck outpatient Dispo: D/c home today. F/u 2 weeks w/ Dr. Del Toro Addendum - Attending - Attending Attestation Date/Time: 03/03/19 0052 I personally evaluated the patient and discussed the management with Dr. Aragon I agree with the History, Examination, Assessment and Plan documented above with any addition or exceptions noted below.
[2019-02-27] MEDS: Ferrous Sulfate 325 MG TAB PO SCH (09:38)
[2019-02-27] MEDS: Docusate Calcium (SURFAK) 240 MG CAP PO SCH (09:39)
[2019-02-27] MEDS ORDERED: FLU VACC QS2019-20(6MOS UP)/PF 60 MCG/0.5 ML SYRINGE IM ONE (10:30)
--- NOTE | 2019-02-28 10:06 | DIS ---
DATE OF ADMISSION: 02/25/2019 DATE OF DISCHARGE: 02/27/2019 HISTORY OF PRESENT ILLNESS AND HOSPITAL COURSE: The patient is a 28-year-old G3 , P2, now P3, who is status post term spontaneous vaginal delivery at 40 weeks. She did require Hemabate due to concern for hemorrhage during delivery, and did experience diarrhea, which resolved with Imodium p.r.n. overnight. On the day of discharge, the patient is stable, ready to go home with improvement in bleeding. She will be started on p.o. home iron. The patient is stable and voices no concerns otherwise. Instructed that she should follow up with Dr. Del Toro in the next 2 weeks for care. DISCHARGE MEDICATIONS: 1. Iron. 2. Dulcolax. 3. Motrin. Job ID: [id number] [facility]
== END 2019-02-27 12:40 | disposition home or self-care (01) | DRG 806 ==
LOC: L&D/OP 03:39 → L&D 05:39 → 3SW 21:50
PROVIDERS: ADMIT Obstetrics & Gynecology; ATTEND Obstetrics & Gynecology
PROC: 10E0XZZ Delivery of Products of Conception, External Approach (ICD-10-PCS; principal; 2019-02-25)
DX: O48.0 Post-term pregnancy (principal); D62 Acute posthemorrhagic anemia; Z37.0 Single live birth; O99.02 Anemia complicating childbirth; Z3A.40 40 weeks gestation of pregnancy
CPT/HCPCS: 36415; 51702; 85027; 86780; 86850; 86900; 86901; 87340; 90471; 90686; 90715; 99285; G0008; J2210; J2405; J2590; J3490; S0020

== ENCOUNTER 2022-01-14 18:56 | Emergency (ER) | payer BC, SELFPAY ==
[2022-01-14] MEDS ORDERED: Diazepam 5 MG TAB ONE (19:13)
[2022-01-14] MEDS ORDERED: Ketorolac Tromethamine 30 MG/ML VIAL ONE (19:13)
[2022-01-14] MEDS ORDERED: HYDROcodone/Acetaminophen 5/325 mg Tablet ONE (20:33)
[2022-01-14] MEDS ORDERED: Lidocaine 5% Patch TD SCH (21:00)
[2022-01-14] MEDS ORDERED: Ketamine 50 MG/ML (10ML VIAL) ONE (21:50)
[2022-01-15] MEDS ORDERED: Transdermal Patch Removal TOP SCH (09:00)
== END 2022-01-14 23:07 | disposition home or self-care (01) ==
LOC: ERS 18:56
DX: M54.50 Low back pain, unspecified (principal)
CPT/HCPCS: 96372; 96374; J1885